=== PATIENT | female | born 1960 | race African-American/Black ===

== ENCOUNTER 2017-08-08 00:04 | Emergency (ER) | payer OTHER ==
[~2017-08-08] VITALS: Ht 170.2 cm; Wt 95.0 kg
[~2017-08-08 00:04] MED LIST: CEPH250C2 PO; HYDR-1348 PO
[2017-08-08] MEDS ORDERED: ONDANSETRON 4MG ODT PO ONE (02:00)
[2017-08-08] MEDS ORDERED: KETOROLAC 30MG/ML VIAL IM ONE (02:00)
[2017-08-08 04:15] VITALS: BP 101/67
== END 2017-08-08 04:45 | disposition home or self-care (01) ==
LOC: ER 00:04
DX: S92.912A Unspecified fracture of left toe(s), initial encounter for closed fracture (principal); W22.03XA Walked into furniture, initial encounter; Y93.9 Activity, unspecified; Y92.9 Unspecified place or not applicable
CPT/HCPCS: 29505; 73630; 96372; 99284; J1885; Q0162